=== PATIENT | female | born 1965 | race Caucasian/White ===

== ENCOUNTER 2017-03-21 16:10 | Inpatient (IN) | payer MEDICAID ==
[~2017-03-21] VITALS: Ht 157.5 cm; Wt 95.3 kg
[2017-03-21 18:30] LABS: BASOPHIL % 0.1 % (0-2); PLATELET COUNT 265 x10^3mcL (130-400)
[2017-03-21 18:31] LABS: RED CELL DISTRIBUTION WIDTH 16.8 % (11.5-14.5)
[2017-03-21 18:34] LABS: CALCIUM 10.8 mg/dL (8.5-10.1); CARBON DIOXIDE 29.9 mmol/L (21-32); CREATININE SERUM 1.5 mg/dL (0.6-1.0); POTASSIUM SERUM 4.1 mmol/L (3.5-5.1)
[2017-03-21 18:39] LABS: BILIRUBIN TOTAL 0.6 mg/dL (0.20-1.00)
[2017-03-21 18:40] LABS: TOTAL PROTEIN, SERUM 8.7 g/dL (6.4-8.2)
[2017-03-21 22:00] VITALS: BP 112/68
[2017-03-21 22:29] VITALS: Ht 157.5 cm; Wt 95.3 kg
[2017-03-21 22:59] VITALS: BP 106/57
[2017-03-22] VITALS (7 sets, daily range): BP systolic 96–121; BP diastolic 47–72
[2017-03-22 00:23] LABS: T3 TOTAL 1.33 ng/mL
[2017-03-22 00:25] LABS: CHOLESTEROL/HDL RATIO 4.8
[2017-03-22 00:26] LABS: FREE T4 1.16 ng/dL (0.76-1.46); FREE THYROXINE INDEX 3.2 ug/dL (1.4-4.5)
[2017-03-22 05:05] LABS: microscopic required? YES; urine erythrocyte 2+ (NEGATIVE)
[2017-03-22 05:13] LABS: AMPHETAMINE QUAL UR NONE DETECTED (NEG <=1000)
[2017-03-22 06:39] LABS: CALCIUM 8.2 mg/dL (8.5-10.1); CREATININE SERUM 1.2 mg/dL (0.6-1.0); POTASSIUM SERUM 4.7 mmol/L (3.5-5.1)
[2017-03-22 06:57] LABS: BASOPHIL % 0.1 % (0-2); PLATELET COUNT 220 x10^3mcL (130-400)
[2017-03-23 05:39] VITALS: BP 114/66
[2017-03-23 06:32] LABS: CALCIUM 8.6 mg/dL (8.5-10.1); CARBON DIOXIDE 27.5 mmol/L (21-32); CHLORIDE SERUM 111 mmol/L (98-107); CREATININE SERUM 0.9 mg/dL (0.6-1.0); GFR1 > 60 mL/min; GLUCOSE SERUM 87 mg/dL (74-106); MAGNESIUM 2.1 mg/dL (1.8-2.4); PHOSPHOROUS 3.1 mg/dL (2.5-4.9); POTASSIUM SERUM 3.6 mmol/L (3.5-5.1); SODIUM SERUM 146 mmol/L (136-145)
[2017-03-23 06:58] LABS: BASOPHIL % 0.3 % (0-2); PLATELET COUNT 209 x10^3mcL (130-400)
[2017-03-23 07:23] LABS: RED CELL DISTRIBUTION WIDTH 17.2 % (11.5-14.5)
[2017-03-23 08:35] VITALS: BP 116/77
[2017-03-23 08:44] VITALS: BP 138/75
[2017-03-23 17:08] VITALS: BP 118/61
== END 2017-03-23 17:50 | disposition home or self-care (01) | DRG 254 ==
LOC: ED 16:10 → DU 20:33 → MU 20:33 → DU 22:00 → MU 03-22 23:51
PROVIDERS: Emergency Medicine Emergency Medical Services; Internal Medicine Gastroenterology; ADMIT Family Medicine
PROC: 0DB78ZX Excision of Stomach, Pylorus, Via Natural or Artificial Opening Endoscopic, Diagnostic (ICD-10-PCS; principal; 2017-03-23 08:30)
DX: K43.9 Ventral hernia without obstruction or gangrene (principal); N17.0 Acute kidney failure with tubular necrosis; K21.9 Gastro-esophageal reflux disease without esophagitis; E83.52 Hypercalcemia; E87.0 Hyperosmolality and hypernatremia; E86.0 Dehydration; D45 Polycythemia vera; K57.31 Diverticulosis of large intestine without perforation or abscess with bleeding; I10 Essential (primary) hypertension; E78.5 Hyperlipidemia, unspecified; E66.9 Obesity, unspecified; Z68.38 Body mass index [BMI] 38.0-38.9, adult
CPT/HCPCS: 43235; 83880; 84439; C9113; J0295; J1200; J1610; J2250; J2270; J2310; J2405; J2543; J2765; J3010; J3480; J3490; J7030; Q0092; Q9967